=== PATIENT | male | born 1960 | race Caucasian/White ===

== ENCOUNTER 2018-02-26 19:52 | Emergency (ER) | payer MEDICARE, OTHER ==
[~2018-02-26] VITALS: Ht 165.1 cm; Wt 61.2 kg
--- NOTE | 2018-02-26 19:52 | NUR ---
PT BIB BY AMBULANCE TO BED 10.
[2018-02-26 19:55] VITALS: BP 145/82
[2018-02-26] MEDS ORDERED: ACETAMINOPHEN 650 MG SUPP RC ONE ×2 (20:00→20:04)
[2018-02-26] MEDS ORDERED: VANCOMYCIN 1,000 MG in DEXTROSE 5% 250 ML IV ONE (20:15)
[2018-02-26] MEDS ORDERED: PIPERACILLIN/TAZOBACTAM 4.5 GM in DEXTROSE 5% 100 ML IV ONE (20:15)
[2018-02-26] MEDS ORDERED: fentaNYL 0.05 MG/ML VIAL IVP ONE (20:15)
--- NOTE | 2018-02-26 20:17 | NUR ---
BIBA FOR FOR ALOC SINCE MONDAY . PT IS AWAKE BUT NOT VERBAL AT THIS TIME. PT WITHDRAWS TO PAIN. DIALYSIS PT T/TH/SAT LAST DIALYSIS SAT. SKIN IS WARM, DRY, INTACT. PT ARRIVES W/ ADULT DIAPER W/ FORMED STOOL PRESENT. SHUNT TO LEFT UPPER ARM +BRUIT AND THRILL. EMS ESTABLISHED IV AND GAVE 300ML BOLUS. PT LAYING IN BED, SIDE RAILS UP X2, COOLING MEASURES IN PLACE, ER MD AWARE OF PT STATUS.
[2018-02-26 20:48] LABS: BASOPHILS % (AUTO) 0.3 % (0.0-2.0); HEMATOCRIT 37.6 % (36-52); HEMOGLOBIN 11.9 g/dL (12.0-18.0); LYMPHOCYTES # (AUTO) 0.8 K/uL (2.0-11.5); MEAN CORPUSCULAR HEMOGLOBIN 27 pg (27-31); MEAN CORPUSCULAR HGB CONC 32 g/dL (33-37); MEAN CORPUSCULAR VOLUME 86.1 fL (80-94); MONOCYTES # (AUTO) 0.6 K/uL (0.8-1.0); MONOCYTES % (AUTO) 5.3 % (1.7-9.3); NEUTROPHILS # (AUTO) 9.1 K/uL (1.8-7.7); NEUTROPHILS % (AUTO) 86.4 % (42.2-75.2); PLATELET COUNT (AUTO) 263 K/uL (140-450); RED BLOOD CELL COUNT(AUTO) 4.37 MIL/uL (4.20-6.10); RED CELL DISTRIBUTION WIDTH 19.1 % (11.6-13.7); WHITE BLOOD COUNT (AUTO) 10.5 K/uL (4.8-10.8)
[2018-02-26] MEDS ORDERED: NACL 0.9% 500 ML IV ONE (20:55)
[2018-02-26] MEDS ORDERED: INSULIN REGULAR, HUMAN 100 UNIT/ML VIAL IV ONE (20:55)
[2018-02-26] MEDS ORDERED: INSULIN REGULAR, HUMAN 100 UNIT/ML VIAL IVP ONE ×2 (21:00→22:45)
--- NOTE | 2018-02-26 21:00 | NUR ---
PT LAYING IN BED, AWAKE , SAYS "OK" TO ALL QUESTIONS, FAMILY AT BEDSIDE, VSS.
[2018-02-26 21:03] LABS: PROTHROMBIN TIME 9.7 secs (10.8-13.4)
[2018-02-26] MEDS ORDERED: PIPERACILLIN/TAZOBACTAM 3.375 GM in DEXTROSE 5% 50 ML IV ONE (21:10)
[2018-02-26 21:13] LABS: CREATINE KINASE MB 7.1 ng/mL (0-3.6)
[2018-02-26] MEDS ORDERED: PIPERACILLIN/TAZOBACTAM 3.375 GM VIAL IV ONE (21:17)
[2018-02-26] MEDS ORDERED: VANCOMYCIN 1,000 MG VIAL ONE (21:18)
[2018-02-26 21:36] LABS: ALBUMIN 2.9 g/dL (3.4-5.0); ANION GAP 15.6 (8-16); CARBON DIOXIDE 22.1 mmol/L (21-32); POTASSIUM 3.7 mmol/L (3.5-5.1); TOTAL BILIRUBIN 0.5 mg/dL (0.0-1.0)
[2018-02-26 21:42] LABS: CREATININE 4.2 mg/dL (0.7-1.3)
--- NOTE | 2018-02-26 22:00 | NUR ---
PT LAYING IN BED, NO CHANGE IN STATUS.
--- NOTE | 2018-02-26 23:00 | NUR ---
STRAIGHT CATHERTERIZATION PERFORMED, 200ML YELLOW CLEAR URINE RETURNED, SPECIMEN SENT TO LAB, PT CLEANED AND POSITIONED TO COMFORT.
--- NOTE | 2018-02-26 23:22 | NUR ---
PT TO CT SCAN VIA [place].
[2018-02-26 23:30] LABS: APPEARANCE,URINE HAZY (CLEAR); BILIRUBIN,URINE NEGATIVE (NEGATIVE); BLOOD, URINE 2+ (NEGATIVE); COLOR,URINE YELLOW (YELLOW); LEUKOCYTE ESTERASE ,URINE NEGATIVE (NEGATIVE); NITRITE, URINE NEGATIVE (NEGATIVE); UGLUCOSE 4+ (NEGATIVE)
[2018-02-26 23:31] LABS: HYALINE CASTS, URINE 0-10 /LPF (None Seen); RBC,URINE 3-10 (FEW) /HPF (0-5); WBC,URINE 0-5 (RARE) /HPF (0-5)
--- NOTE | 2018-02-26 23:35 | NUR ---
PT RETURNED FROM CT VIA FAMILY MENDEL AT BEDSIDE.
--- NOTE | 2018-02-27 01:23 | NUR ---
PT IN BED AWAKE, FAMILY AT BEDSIDE, VSS, PENDING TX TO [place].
[2018-02-27 01:26] LABS: ANION GAP 12.1 (8-16); POTASSIUM 3.1 mmol/L (3.5-5.1)
[2018-02-27 01:30] LABS: CREATININE 4.3 mg/dL (0.7-1.3)
--- NOTE | 2018-02-27 01:30 | NUR ---
PT INCONTINENT TO STOOL , CLEANED AND LINEN CHANGED, POSITIONED TO COMFORT.
[2018-02-27 02:04] LABS: CREATINE KINASE MB 6.3 ng/mL (0-3.6)
--- NOTE | 2018-02-27 02:14 | NUR ---
SPOKE W/ ROSY FROM [facility] GIVEN REPEAT LAB RESULTS, WILL FOLLOW UP W/ TRANSFER INFORMATION.
--- NOTE | 2018-02-27 02:58 | NUR ---
S/W JERAD PIKE [facility] PT WILL BE GOING TO [facility] [address] [facility] CARE OF DR. Brandyn CASTANEDA. PT WILL BE GOING TO THE ER. REPORT SHOULD BE GIVEN TO [phone]. [facility] WILL TRANSPORT ALS ETA [id number]
--- NOTE | 2018-02-27 03:45 | NUR ---
Patient to be transferred to [facility]. Is being transferred due to CONTINUATION OF CARE. Receiving facility has accepting physician and available space. ER physician has signed transfer form. Patient or responsible democrat has agreed to transfer and signed form. Patient belongings inventoried and will be sent with patient. Copy of nursing notes, lab reports, EKG, Physicians Orders and X-rays to be sent with patient. Report called to BREANNE POLANCO at receiving facility. [facility] ambulance service has been called for transfer. [facility] IN ER AT THIS TIME FOR TRANSFER.
[2018-02-27 03:47] VITALS: BP 122/65
== END 2018-02-27 03:45 | disposition short-term general hospital (02) ==
LOC: MED 19:52
DX: R55 Syncope and collapse (principal); R53.1 Weakness; E11.9 Type 2 diabetes mellitus without complications
CPT/HCPCS: 36415; 36600; 70450; 71045; 80048; 80053; 81001; 82140; 82550; 82553; 82803; 82948; 83605; 83690; 84484; 85025; 85610; 85730; 86886; 86900; 86901; 87040; 87086; 93005; 96365; 96366; 96367; 96375; 96376; 99285; J1815; J2543; J3010; J3370; J7030; J7060; Q0092